=== PATIENT | male | born 1960 | race American Indian/Alaskan Native ===

== ENCOUNTER 2018-06-02 11:39 | Day surgery (SDC) | payer BC ==
[2018-05-31 08:49] VITALS: BMI 26.0
[2018-06-02 12:27] LABS: BASO # 0.01 K/mm3 (0.0-2.0); BASO % 0.2 % (0.0-3.0); EOS # 0.1 (0.0-0.7); EOS % 2.7 % (1.5-5.0); HEMOGLOBIN 15.3 g/dL (14.0-18.0); LYMPH # 2.4 (1.2-3.4); LYMPH % 54.2 % (22.0-35.0); MEAN CELL VOLUME 89.3 fl (80.0-105.0); MEAN CORPUSCULAR HEMOGLOBIN 30.4 pg (25.0-35.0); MEAN PLATELET VOLUME 10.7 fl (7.0-11.0); MONO # 0.3 (0.1-0.6); MONO % 6.4 % (1.0-6.0); RBC 5.04 10^6/uL (3.5-6.1); RED CELL DISTRIBUTION WIDTH 13.4 % (11.5-14.5); WHITE BLOOD COUNT 4.5 10^3/uL (4.5-11.0)
[2018-06-02 12:38] LABS: INR 1.04; PARTIAL THROMBOPLASTIN TIME 34.7 Seconds (26.9-38.3); PROTHROMBIN TIME 11.7 SECONDS (9.4-12.5)
[2018-06-02 12:40] LABS: BLOOD UREA NITROGEN 16 mg/dL (7-21); CALCIUM 9.6 mg/dL (8.4-10.5); GFR NON-AFRICAN AMERICAN > 60
[2018-06-02] MEDS ORDERED: Midazolam 2 MG/2 ML VIAL IVP ONE (14:49)
[2018-06-02] MEDS ORDERED: Lidocaine 1% Inj (20ml) ONE (14:51)
[2018-06-02] MEDS ORDERED: Midazolam 2 MG/2 ML VIAL ONE (14:52)
[2018-06-02] MEDS ORDERED: Oxycodone/Acetaminophen 5/325 mg Tab PO PRN (15:07)
[2018-06-02] MEDS ORDERED: Sodium Chloride 0.45% 1,000 ML IV SCH (15:15)
[2018-06-02 16:16] VITALS: BP 137/74; PULSE 52; RESP 20; TEMP 97.6; O2SAT 99
--- NOTE | 2018-06-02 19:12 | CT ---
PROCEDURE: CT guided left upper pole renal biopsy. HISTORY: 3 cm solid left upper pole renal mass. Evaluate for malignancy PHYSICIAN(S): Al Mills MD. TECHNIQUE: The relative risks and indications of the procedure were explained to the patient and consent obtained. The patient was placed prone on the CT scanner and preliminary images through the upper kidneys obtained. Conscious sedation and monitoring were provided throughout the procedure by a nurse. There is a 3 cm solid mass in the left upper pole posteriorly adjacent to a cyst.. A posterior approach was selected and the area prepped and draped in the usual sterile fashion. 1% Xylocaine was used to anesthetize the skin and soft tissues. A 17-gauge guiding needle was advanced into the 3 cm solid left upper pole renal mass. Its position was confirmed with CT. Using coaxial technique, multiple core biopsies were obtained. The postprocedure images show no evidence of significant hemorrhage. IMPRESSION: 1. CT-guided left upper pole renal biopsy as described above.
== END 2018-06-02 16:50 | disposition home or self-care (01) ==
LOC: SDS 11:39
PROVIDERS: ATTEND Radiology Vascular & Interventional Radiology
DX: C64.2 Malignant neoplasm of left kidney, except renal pelvis (principal); I10 Essential (primary) hypertension
CPT/HCPCS: 36415; 50200; 77012; 80048; 85025; 85610; 85730; 88305; J2250; J2405; J3010; J7030